=== PATIENT | male | born 1970 | race American Indian/Alaskan Native ===

== ENCOUNTER 2017-11-16 02:39 | Emergency (ER) | payer SELFPAY ==
[2017-11-16] MEDS ORDERED: ASPIRIN PO ONE (04:39)
[2017-11-16 05:03] LABS: Basophils % (Auto) 0.6 % (0.0-1.8); Eosinophils % (Auto) 0.7 % (0.0-4.3); Hematocrit 45.5 % (35.5-45.6); Hemoglobin 15.5 gm/dl (11.8-15.2); Lymphocytes # (Auto) 1.6 K/mm3 (1.2-5.4); Lymphocytes % (Auto) 28.7 % (13.4-35.0); Mean Corpuscular HGB Conc 34 % (32-34); Mean Corpuscular Hemoglobin 29 pg (28-32); Mean Corpuscular Volume 87 fl (84-94); Monocytes # (Auto) 0.5 K/mm3 (0.0-0.8); Monocytes % (Auto) 7.9 % (0.0-7.3); Platelet Count 198 K/mm3 (140-440); Red Blood Count 5.26 M/mm3 (3.65-5.03); Red Cell Distribution Width 14.6 % (13.2-15.2)
[2017-11-16 05:22] LABS: BUN/Creatinine Ratio 9; Blood Urea Nitrogen 9 mg/dL (9-20); Calcium 9.4 mg/dL (8.4-10.2); Hemolysis Index 13
--- NOTE | 2017-11-16 11:02 | Emergency Department Report ---
ED General Adult HPI - General Chief complaint: Arrhythmia/Palpitations Stated complaint: CP Time Seen by Provider: 11/16/17 08:42 Source: patient Mode of arrival: Ambulatory Limitations: No Limitations - History of Present Illness Initial comments: Patient states that he took 2 ecstasy tablets yesterday. He felt like his heart was racing so he went to the fire station. He states that paramedics hooked him up to a monitor and found he was tachycardic. However he states they did not recommend that he go to the emergency department. Apparently he must have had a sinus tachycardia I would presume most likely it was not significantly elevated to the point that a [employer] would presume evaluation was necessary. In any case the patient continued to be anxious about feeling like his heart was racing. He denied chest pain pressure or tightness. He denied shortness of breath nausea vomiting dizziness or any other symptoms. He is asymptomatic at this time. Associated Symptoms: denies other symptoms - Related Data Home Medications Medication Instructions Recorded Confirmed Last Taken No Known Home Medications [No 11/16/17 11/16/17 Unknown Reported Home Medications] Allergies Allergy/AdvReac Type Severity Reaction Status Date / Time Penicillins Allergy Unknown Verified 11/16/17 04:38 ED Review of Systems ROS: Stated complaint: CP Other details as noted in HPI Constitutional: denies: chills, fever Eyes: denies: eye pain, eye discharge, vision change ENT: denies: ear pain, throat pain Respiratory: denies: cough, shortness of breath, wheezing Cardiovascular: palpitations. denies: chest pain Endocrine: no symptoms reported Gastrointestinal: denies: abdominal pain, nausea, diarrhea Genitourinary: denies: urgency, dysuria Musculoskeletal: denies: back pain, joint swelling, arthralgia Skin: denies: rash, lesions Neurological: denies: headache, weakness, paresthesias Psychiatric: denies: anxiety, depression Hematological/Lymphatic: denies: easy bleeding, easy bruising ED Past Medical Hx - Past Medical History Previous Medical History?: No (tachycardia) - Surgical History Past Surgical History?: No - Social History Smoking Status: Current Every Day Smoker Substance Use Type: Other - Medications Home Medications: Home Medications Medication Instructions Recorded Confirmed Last Taken Type No Known Home Medications [No 11/16/17 11/16/17 Unknown History Reported Home Medications] ED Physical Exam - General Limitations: No Limitations General appearance: alert, in no apparent distress - Head Head exam: Present: atraumatic, normocephalic - Eye Eye exam: Present: normal appearance. Absent: scleral icterus - ENT ENT exam: Present: mucous membranes moist - Neck Neck exam: Present: normal inspection - Respiratory Respiratory exam: Present: normal lung sounds bilaterally. Absent: respiratory distress - Cardiovascular Cardiovascular Exam: Present: regular rate, normal rhythm. Absent: systolic murmur, diastolic murmur, rubs, gallop - GI/Abdominal GI/Abdominal exam: Present: soft, normal bowel sounds. Absent: distended, tenderness, guarding, rebound, rigid - Rectal Rectal exam: Present: deferred - Extremities Exam Extremities exam: Present: normal inspection - Back Exam Back exam: Present: normal inspection - Neurological Exam Neurological exam: Present: alert, oriented X3, CN II-XII intact. Absent: motor sensory deficit - Psychiatric Psychiatric exam: Present: normal affect, normal mood - Skin Skin exam: Present: warm, dry, intact, normal color. Absent: rash ED Course Vital Signs 11/16/17 11/16/17 04:27 04:40 Temperature 98.6 F Pulse Rate 74 80 Respiratory 20 Rate Blood Pressure 159/108 O2 Sat by Pulse 96 Oximetry - Reevaluation(s) Reevaluation #1: 11/16/17 11:03 After a period of benign cardiac monitoring patient was released. He was asymptomatic. ED Medical Decision Making - Lab Data Result diagrams: 11/16/17 04:46 11/16/17 04:46 Laboratory Results - last 24 hr 11/16/17 11/16/17 04:46 04:46 WBC 5.7 RBC 5.26 H Hgb 15.5 H Hct 45.5 MCV 87 MCH 29 MCHC 34 RDW 14.6 Plt Count 198 Lymph % (Auto) 28.7 [place] % (Auto) 7.9 H Eos % (Auto) 0.7 Baso % (Auto) 0.6 Lymph # 1.6 [place] # 0.5 Eos # 0.0 Baso # 0.0 Seg Neutrophils % 62.1 Seg Neutrophils # 3.5 Sodium 141 Potassium 4.0 Chloride 101.0 Carbon Dioxide 24 Anion Gap 20 BUN 9 Creatinine 1.0 Estimated GFR > 60 BUN/Creatinine Ratio 9 Glucose 95 Calcium 9.4 Troponin T < 0.010 Laboratory Results - last 24 hr 11/16/17 11/16/17 04:46 04:46 WBC 5.7 RBC 5.26 H Hgb 15.5 H Hct 45.5 MCV 87 MCH 29 MCHC 34 RDW 14.6 Plt Count 198 Lymph % (Auto) 28.7 [place] % (Auto) 7.9 H Eos % (Auto) 0.7 Baso % (Auto) 0.6 Lymph # 1.6 [place] # 0.5 Eos # 0.0 Baso # 0.0 Seg Neutrophils % 62.1 Seg Neutrophils # 3.5 Sodium 141 Potassium 4.0 Chloride 101.0 Carbon Dioxide 24 Anion Gap 20 BUN 9 Creatinine 1.0 Estimated GFR > 60 BUN/Creatinine Ratio 9 Glucose 95 Calcium 9.4 Troponin T < 0.010 - EKG Data -: EKG Interpreted by Me EKG shows normal: sinus rhythm, axis, intervals, QRS complexes, ST-T waves Rate: normal - EKG Data Interpretation: no acute changes Critical care attestation.: If time is entered above; I have spent that time in minutes in the direct care of this critically ill patient, excluding procedure time. ED Disposition Clinical Impression: Amphetamine abuse, Palpitations Disposition: DC-01 TO HOME OR SELFCARE Is pt being admited?: No Does the pt Need Aspirin: No Condition: Stable Instructions: Methamphetamine Abuse (ED), Anxiety (ED) Additional Instructions: Return any further symptoms for reevaluation. Obviously avoid substance abuse. Follow-up with her primary care provider. Referrals: GEORGE GRIFFIN MD [Primary Care Provider] - 3-5 Days [facility] [Provider Group] - 3-5 Days Time of Disposition: 11:09
[2017-11-16 11:32] VITALS: BP 131/87
== END 2017-11-16 11:33 | disposition home or self-care (01) ==
LOC: ED 02:39
DX: R00.2 Palpitations (principal); F15.10 Other stimulant abuse, uncomplicated; F17.200 Nicotine dependence, unspecified, uncomplicated; Z88.0 Allergy status to penicillin
CPT/HCPCS: 36415; 80048; 84484; 85025; 93005; 93010